=== PATIENT | female | born 1995 | race Caucasian/White ===

== ENCOUNTER → 2017-01-16 | Outpatient (CLI) | payer OTHER ==
[~2017-01-16] MED LIST: PRENTAB26 PO; SYMIN/8045 INH; VNTHFA/IN INH
[2017-01-16 10:05] LABS: BLOOD UREA NITROGEN 14 mg/dl (7-18); CALCIUM 8.7 mg/dl (8.5-10.1); CARBON DIOXIDE 29 mmol/L (21-32); CHLORIDE 106 mmol/L (98-107); CREATININE 0.69 mg/dl (0.60-1.20); GLUCOSE 83 mg/dl (70-99); SODIUM 140 mmol/L (136-145)
[2017-01-16 10:09] LABS: CHOLESTEROL 117 mg/dl (0-200); CHOLESTEROL/HDL RATIO 2.2; HDL CHOLESTEROL 53 mg/dl; LDL CHOLESTEROL CALCULATED 57 mg/dl; TRIGLYCERIDES 33 mg/dl (0-150); VERY LOW DENSITY LIPOPROT CALC 7 mg/dl
[2017-01-16 11:10] LABS: ESTIMATED AVERAGE GLUCOSE 103 mg/dl; HA1C FLAG Normal (Normal)
== END | disposition home or self-care (01) ==
LOC: C.LAB 07:20
PROVIDERS: ATTEND Physician Assistant
DX: Z13.220 Encounter for screening for lipoid disorders (principal); Z13.29 Encounter for screening for other suspected endocrine disorder; Z13.228 Encounter for screening for other metabolic disorders; Z13.0 Encounter for screening for diseases of the blood and blood-forming organs and certain disorders involving the immune mechanism

== ENCOUNTER → 2017-04-13 | Outpatient (CLI) | payer OTHER | END | disposition home or self-care (01) | LOC: C.LAB 17:39 | PROVIDERS: ATTEND Obstetrics & Gynecology | DX: N97.9 Female infertility, unspecified (principal) ==

== ENCOUNTER → 2017-04-19 | Outpatient (CLI) | payer OTHER ==
--- NOTE | 2017-04-19 10:40 | DIAGNOSTIC IMAGING REPORT ---
HYSTEROSALPINGOGRAM HISTORY: Infertility. FLUOROSCOPY TIME: 0.3 minutes. TECHNIQUE: The cervix was cannulated by the wet room supervisor-pocket cutter and water soluble contrast was instilled into the uterus under fluoroscopic guidance. Multiple spot images were obtained. FINDINGS: The uterine cavity is normal in size, shape, and position. The fallopian tubes are patent and there is free peritoneal spill bilaterally. IMPRESSION: Normal hysterosalpingogram. The above report was generated using voice recognition software. It may contain grammatical, syntax or spelling errors. Electronically signed by: Oj Herndon M.D. 04/19/2017 10:39 AM Dictated Date/Time: 04/19/2017 10:39 AM
== END | disposition home or self-care (01) ==
LOC: C.RAD 09:45
PROVIDERS: ATTEND Obstetrics & Gynecology
DX: Z31.41 Encounter for fertility testing (principal)

== ENCOUNTER → 2017-05-31 | Outpatient (CLI) | payer OTHER | END | disposition home or self-care (01) | LOC: C.LABSPEC 13:13 | PROVIDERS: ATTEND Obstetrics & Gynecology | DX: Z34.01 Encounter for supervision of normal first pregnancy, first trimester (principal) ==

== ENCOUNTER → 2017-06-09 | Outpatient (CLI) | payer OTHER ==
[2017-06-09 10:44] LABS: BASO % 0.2 %; BASO ABS # 0.01 K/uL (0-0.2); EOS % 0.8 %; EOS ABS # 0.05 K/uL (0-0.5); HEMATOCRIT 37.4 % (37-47); HEMOGLOBIN 12.8 g/dL (12.0-16.0); IG# 0.01 K/uL (0.00-0.02); LYMPH % 20.6 %; LYMPH ABS # 1.26 K/uL (1.2-3.4); MEAN CELL VOLUME 87.8 fL (80-100); MEAN CORPUSCULAR HGB CONC 34.2 g/dl (32-36); MEAN PLATELET VOLUME 10.4 fL (7.4-10.4); MONO % 4.4 %; MONO ABS # 0.27 K/uL (0.11-0.59); NEUT % 73.8 %; NEUT ABS # 4.53 K/uL (1.4-6.5); PLATELET COUNT 228 K/uL (130-400); RED CELL DISTRIBUTION WIDTH SD 41.8 fL (36.4-46.3); WHITE BLOOD COUNT 6.13 K/uL (4.8-10.8)
== END | disposition home or self-care (01) ==
LOC: C.LAB1850 09:13
PROVIDERS: ATTEND Obstetrics & Gynecology
DX: Z34.01 Encounter for supervision of normal first pregnancy, first trimester (principal)

== ENCOUNTER → 2017-08-04 | Outpatient (CLI) | payer OTHER | END | disposition home or self-care (01) | LOC: C.LAB1850 10:19 | PROVIDERS: ATTEND Obstetrics & Gynecology | DX: Z34.02 Encounter for supervision of normal first pregnancy, second trimester (principal) ==

== ENCOUNTER → 2017-12-22 | Outpatient (CLI) | payer OTHER | END | disposition home or self-care (01) | LOC: C.LABSPEC 12:44 | PROVIDERS: ATTEND Obstetrics & Gynecology | DX: Z34.03 Encounter for supervision of normal first pregnancy, third trimester (principal) ==

== ENCOUNTER 2018-01-02 08:06 | Outpatient (CLI) | payer OTHER ==
[~2018-01-02] VITALS: Ht 172.7 cm; Wt 87.5 kg
[2018-01-02 08:41] VITALS: Ht 172.7 cm; Wt 87.5 kg
[2018-01-02] MEDS ORDERED: ACETAMINOPHEN 325 MG TAB PO SCH (09:00)
[2018-01-02 09:13] LABS: BASO % 0.1 %; BASO ABS # 0.01 K/uL (0-0.2); EOS % 0.8 %; EOS ABS # 0.07 K/uL (0-0.5); HEMATOCRIT 34.9 % (37-47); HEMOGLOBIN 11.5 g/dL (12.0-16.0); IG# 0.01 K/uL (0.00-0.02); LYMPH % 13.2 %; LYMPH ABS # 1.14 K/uL (1.2-3.4); MEAN CELL VOLUME 86.8 fL (80-100); MEAN CORPUSCULAR HEMOGLOBIN 28.6 pg (25-34); MEAN PLATELET VOLUME 10.6 fL (7.4-10.4); MONO % 5.1 %; MONO ABS # 0.44 K/uL (0.11-0.59); NEUT % 80.7 %; NEUT ABS # 6.98 K/uL (1.4-6.5); PLATELET COUNT 229 K/uL (130-400); RED CELL DISTRIBUTION WIDTH CV 14.5 % (11.5-14.5); RED CELL DISTRIBUTION WIDTH SD 45.6 fL (36.4-46.3); WHITE BLOOD COUNT 8.65 K/uL (4.8-10.8)
[2018-01-02 09:36] LABS: ALBUMIN 2.6 gm/dl (3.4-5.0); ALKALINE PHOSPHATASE 158 U/L (45-117); ALT/SGPT 39 U/L (12-78); AST/SGOT 22 U/L (15-37); CREATININE 0.52 mg/dl (0.60-1.20); TOTAL PROTEIN 6.8 gm/dl (6.4-8.2)
== END 2018-01-02 10:43 | disposition home or self-care (01) ==
LOC: C.OPB 08:06 → C.LD 08:07 → C.OPB 10:43
PROVIDERS: ATTEND Obstetrics & Gynecology
DX: O13.3 Gestational [pregnancy-induced] hypertension without significant proteinuria, third trimester (principal); R10.13 Epigastric pain; Z3A.39 39 weeks gestation of pregnancy

== ENCOUNTER 2018-01-02 17:53 | Inpatient (IN) | payer OTHER ==
[~2018-01-02] VITALS: Ht 172.7 cm; Wt 87.5 kg
[2018-01-02 18:33] VITALS: Ht 172.7 cm; Wt 87.5 kg
[2018-01-02] MEDS ORDERED: LACTATED RINGER'S 1000ML 1,000 ML IV PRN (18:52)
[2018-01-02] MEDS ORDERED: LACTATED RINGER'S 1000ML 500 ML IV PRN (19:02)
[2018-01-02] MEDS ORDERED: OXYTOCIN 30 UNITS/500ML NSS IV PRN (19:15)
[2018-01-02] MEDS: BUDESONIDE/FORMOTEROL FUMARATE 160/4.5 60 PUFFS/INHALER INH SCH (19:45)
[2018-01-02 19:49] LABS: HEMATOCRIT 35.3 % (37-47); HEMOGLOBIN 11.6 g/dL (12.0-16.0); MEAN CELL VOLUME 86.7 fL (80-100); MEAN CORPUSCULAR HEMOGLOBIN 28.5 pg (25-34); MEAN CORPUSCULAR HGB CONC 32.9 g/dl (32-36); MEAN PLATELET VOLUME 10.7 fL (7.4-10.4); PLATELET COUNT 236 K/uL (130-400); RED CELL DISTRIBUTION WIDTH CV 14.5 % (11.5-14.5); RED CELL DISTRIBUTION WIDTH SD 45.1 fL (36.4-46.3); WHITE BLOOD COUNT 9.45 K/uL (4.8-10.8)
[2018-01-02] MEDS ORDERED: CALCIUM CARBONATE 500 MG CHEWABLE PO PRN (20:15)
[2018-01-02] MEDS ORDERED: NURSING VERBAL MED ORDER ONE (20:15)
[2018-01-02] MEDS: ACETAMINOPHEN 325 MG TAB PO PRN (20:22)
[2018-01-03] MEDS: ACETAMINOPHEN 325 MG TAB PO PRN (03:39)
[2018-01-03] MEDS: LACTATED RINGER'S 1000ML 1,000 ML IV SCH ×3 (04:57→14:51)
[2018-01-03] MEDS: ALBUTEROL HFA 8 GM INHALER INH PRN (06:17)
[2018-01-03] MEDS: BUDESONIDE/FORMOTEROL FUMARATE 160/4.5 60 PUFFS/INHALER INH SCH ×2 (08:18→22:07)
[2018-01-03] MEDS ORDERED: EpHEDrine SULFATE INJ 50 MG/ML AMP ONE (10:19)
[2018-01-03] MEDS ORDERED: BUPIVACAINE 0.25% 30 ML VIAL ONE ×2 (10:19→17:01)
[2018-01-03] MEDS ORDERED: FENTANYL CITRATE INJ 50 MCG/1 ML 2 ML VIAL ONE ×2 (10:20→17:01)
[2018-01-03] MEDS ORDERED: FENTANYL 2MCG/ML ROPIV 1.25MG/ML 100ML BAG ONE (10:21)
[2018-01-03] MEDS ORDERED: NALOXONE HCL INJ 1 MG in SODIUM CHLORIDE 0.9% 1000ML 1,000 ML IV PRN (11:26)
[2018-01-03] MEDS ORDERED: LACTATED RINGER'S 1000ML 500 ML IV PRN (11:26)
[2018-01-03] MEDS ORDERED: NALBUPHINE HCL INJ 10 MG/ML 1ML AMP IV PRN (11:30)
[2018-01-03] MEDS ORDERED: NALOXONE HCL INJ 0.4 MG/1 ML VIAL/CARP IV PRN (11:30)
[2018-01-03] MEDS ORDERED: DiphenhydrAMINE HCL 50 MG/ML VIAL IV PRN (11:30)
[2018-01-03] MEDS ORDERED: EpHEDrine SULFATE INJ 50 MG/ML AMP IV PRN (11:30)
[2018-01-03] MEDS: FENTANYL 2MCG/ML ROPIV 1.25MG/ML 100ML BAG EPI PRN ×3 (16:44→18:47)
[2018-01-03] MEDS ORDERED: ACETAMINOPHEN 325 MG TAB PO PRN (20:00)
[2018-01-03] MEDS ORDERED: SUPERCREAM 0.870 % 15GM JAR EXT PRN (20:00)
[2018-01-03] MEDS ORDERED: OXYTOCIN 30 UNITS/500ML NSS IV PRN (20:00)
[2018-01-03] MEDS ORDERED: OXYCODONE/ACETAMINOPHEN 5-325 TAB PO PRN (20:00)
[2018-01-03] MEDS ORDERED: HYDROCORTISONE ACETATE 25 MG SUPP PR PRN (20:00)
[2018-01-03] MEDS ORDERED: DIPHTHERIA/TETANUS/PERTUSSIS 0.5 ML SYR/VIAL IM. ONE (20:00)
[2018-01-03] MEDS ORDERED: LANOLIN OINT EXT PRN (20:00)
[2018-01-03] MEDS ORDERED: BENZOCAINE 20% AER SPR 82.5 GM CAN EXT PRN (20:00)
--- NOTE | 2018-01-03 20:02 | Vaginal Delivery Summary ---
Vaginal Delivery Summary Yue pushed to deliver her viable female in the ANNE position over an intact perineum. There was no nuchal cord, and there was no difficulty with delivery of the shoulders or body. The was placed on the maternal abdomen while cord was doubly clamped and cut. Gentle traction was applied to the cord which promptly avulsed. Fundal massage was performed and within a few minutes the placental mass delivered easily and spontaneously. On exam the placenta was intact with a 3VC. There were no lacerations of cervix, vagina or perineum. The fundus was firm and lochia was minimal immediately after delivery , and mother and infant are doing well at this time.
[2018-01-03] MEDS: IBUPROFEN 600 MG TAB PO PRN (20:14)
[2018-01-03] MEDS ORDERED: ALBUTEROL HFA 8 GM INHALER INH PRN (20:15)
--- NOTE | 2018-01-03 21:25 | Anesthesia Procedure Note ---
Anesthesia Epidural Removal Nt Date & Time Jan 03, 2018 at 21:25 Vital Signs Pain Intensity: 3.0 Notes Mental Status: alert / awake / arousable, participated in evaluation Nausea / Vomiting: adequately controlled Pain: adequately controlled Airway Patency, RR, SpO2: stable & adequate BP & HR: stable & adequate Hydration State: stable & adequate Neuraxial Anesthesia: was administered Anesthetic Complications: no major complications apparent, pt satisfied with anesthetic care Epidural: removed without complications, with tip intact
[2018-01-03 22:00] VITALS: BP 133/78; PULSE 97; TEMP 36.9; O2SAT 99
[2018-01-03] MEDS: DOCUSATE SODIUM 100 MG CAP PO SCH (22:14)
[2018-01-03 23:10] VITALS: BP 124/84; PULSE 94; TEMP 36.6; O2SAT 97
[2018-01-04 03:30] VITALS: BP 114/73; PULSE 87; TEMP 36.4; O2SAT 98
[2018-01-04] MEDS: IBUPROFEN 600 MG TAB PO PRN ×3 (06:22→19:39)
--- NOTE | 2018-01-04 06:38 | Progress Note ---
Subjective Jan 04, 2018. Subjective conversation w/ patient Ambulation: ambulating normally Voiding: no voiding problems Passing Gas: Yes Diet Tolerance: Regular Diet Lochia: Moderate Pain: Improving Problem List Medical Problems: (1) Asthma (2) Gestational hypertension (3) Headache in (4) with 30 completed weeks gestation (5) Uterine cramping Review of Systems Constitutional: No fever Respiratory: No shortness of breath Cardiac: No chest pain, No palpitations Abdomen: No nausea, No vomiting Objective Vital Signs Date Time Temp Pulse Resp B/P (MAP) Pulse Ox O2 Delivery O2 Flow Rate FiO2 01/04/18 03:30 36.4 87 16 114/73 (87) 98 Room Air 01/03/18 23:10 36.6 94 16 124/84 (97) 97 Room Air 01/03/18 22:00 Room Air 01/03/18 22:00 36.9 97 16 133/78 (96) 99 Room Air Physical Exam General Appearance: WELL-APPEARING, NO APPARENT DISTRESS Respiratory/Chest: normal breath sounds, no respiratory distress Cardiovascular: regular rate, rhythm Abdomen: soft Fundus: Firm (at umbilicus) Laboratory Results Last 24 Hours Test 01/04/18 06:27 Assessment and Plan Problem List Medical Problems: (1) Dehydration Status: Acute (2) Right lower quadrant abdominal pain Status: Acute (3) Vomiting Status: Acute Post- Day#: 1 Continue Routine Care: Analgesia PRN Escalate diet as needed Ambulation encouraged. Resident Physician Supervision Note: I interviewed and examined the patient. Discussed with Dr. Weston and agree with findings and plan as documented in the note. Any exceptions or clarifications are listed here: [None] Documented By: Hayley Yoon
[2018-01-04 06:44] LABS: HEMATOCRIT 32.1 % (37-47); HEMOGLOBIN 10.5 g/dL (12.0-16.0)
[2018-01-04] MEDS: DOCUSATE SODIUM 100 MG CAP PO SCH ×2 (07:43→19:40)
[2018-01-04] MEDS: BUDESONIDE/FORMOTEROL FUMARATE 160/4.5 60 PUFFS/INHALER INH SCH ×2 (07:43→19:40)
[2018-01-04 07:47] VITALS: BP 129/85; PULSE 75; TEMP 36.7; O2SAT 99
[2018-01-04] MEDS ORDERED: BUDESONIDE/FORMOTEROL FUMARATE 80/4.5 60 PUFFS/INHALER INH SCH (08:00)
[2018-01-04] MEDS: PRENATAL VITAMIN TAB PO SCH (08:11)
[2018-01-04 11:25] VITALS: BP 116/74; PULSE 80; TEMP 36.6
[2018-01-04 16:00] VITALS: BP 127/84; PULSE 82; TEMP 36.8; O2SAT 99
[2018-01-04] MEDS: ALBUTEROL HFA 8 GM INHALER INH PRN (19:40)
[2018-01-05 00:15] VITALS: BP 119/76; PULSE 70; TEMP 34.9
[2018-01-05] MEDS: IBUPROFEN 600 MG TAB PO PRN ×2 (00:17→06:15)
--- NOTE | 2018-01-05 00:30 | Discharge Instructions ---
Discharge Instructions Date of Service Jan 05, 2018. Admission Reason for Admission: Blood Pressure Check Discharge Discharge Diagnosis / Problem: after delivery Discharge Goals Goal(s): Routine recovery after delivery Medications Continue Dispensed Medications: supercream, dermaplast, tucks, inhaler Activity Recommendations Activity Limitations: as noted below . Instructions / Follow-Up Instructions / Follow-Up ACTIVITY RECOMMENDATIONS: * Gradual return to full activity over the next 2-3 weeks. * No lifting - nothing heavier than baby over the next 2-3 weeks. * Do not engage in vigorous exercise, sexual activity or sports until cleared by your physician. * Do not drive or operate any motorized equipment until cleared by your physician. * You may shower/bathe daily. MEDICATIONS: For discomfort or pain, you may use Acetaminophen (Tylenol), Ibuprofen (Advil), or Naproxen (Aleve) following the package directions. For constipation you may use Colace following the package directions. BREAST CARE: If you are not breast feeding: * Wear a supportive bra 24 hours a day for one to two weeks. * Avoid stimulating your breasts and nipples as much as possible during the first few weeks after delivery. * When taking a shower, have the warm water hit your back, not breasts. * When your breasts feel full, apply ice packs. Usually three to four times a day helps ease the discomfort. * Take a mild pain medication (Tylenol / Motrin) when you are uncomfortable. If breast feeding: * Use breast milk to lubricate nipples. Lansinoh cream may be used for sore nipples. You do not need to remove cream prior to breast feeding. If using a different brand of cream, check the label for directions regarding removal of cream prior to nursing. * Wear a supportive bra. * If having problems with breasts or breast feeding, call a independent consultant or your health care provider. EPISIOTOMY CARE: After delivery, if you have an episiotomy (stitches), the following steps will ease discomfort and aid healing. * For the first 24 hours after delivery, place ice packs next to your episiotomy to help reduce swelling. * After the first 24 hour-period, sitz baths, either portable or in the tub, are suggested. A shower with a shower arm sprayed over the episiotomy may be comforting. * Lilliana care should be done after each voiding and bowel movement. Squirt warm water from a plastic bottle over the perineum (region of the body between the anus and urinary opening) and pat dry. * Use Dermoplast to ease discomfort. Shake container. Oil Trough directly over the episiotomy. Place a Tucks on a clean sanitary pad next to your episiotomy. SPECIAL CARE INSTRUCTIONS: When you are discharged from the hospital, it is important for you to follow the instructions listed below: * During the first week at home, you should be able to care for yourself and your baby. In addition, the usual light household activities are encouraged. * Limit your activities to the way you feel. Do not try to clean the house or move furniture. Be sensible. * If you actively engage in sports and have done so up until the time of your delivery, you may resume these activities as soon as you feel able. This may take up to one month or even longer. Use good judgment. * Continue to take your vitamins for at least six weeks after the of your baby. * Your diet need not be limited unless you were on a special diet before your delivery. Breast-feeding mothers need around 2500 calories per day and at least 64-80 ounces of fluid per day (8 to 10 glasses). * You should eat foods from the four major food groups. Crash diets or fad diets are to be avoided. Eating lean meats, fresh fruits and vegetables, low-fat dairy products, high fiber foods and a regular exercise program, will help you get back to your pre- weight without putting your health at risk. * Constipation is sometimes a problem after delivery. Take a mild laxative as needed. If breast feeding, Milk of Magnesia is acceptable to use. You may use a suppository or Fleets enema if no episiotomy. * A daily shower or tub bath is suggested. Be sure to thoroughly and gently dry the perineum. * A bloody vaginal discharge will usually continue until around four weeks post . A small amount of bleeding may continue for as long as six weeks. Vaginal discharge changes from the bright red bleeding after delivery to pink then brownish and finally yellowish-pink before becoming white and disappearing. * Bleeding may increase with activity. Your first period may come in 4-8 weeks. If you are breast feeding, your period may be delayed even longer. * [place] (sex) can begin whenever both you and your partner feel comfortable and do not have any form of genital infection. It is recommended that you wait at least six weeks for internal and external healing to occur. If you have questions, please talk to your health care practitioner. A condom should be used to prevent infection and . * Foreplay, gentle intercourse and lubrication is very important the first several times to prevent pain. A water-based lubricant such as K-Y jelly or Astroglide may be used. * If you have RH negative blood and your baby is RH positive, you will receive RHOGAM by injection prior to discharge. The nurse will give you a card to keep with you that has the date and place that you received RHOGAM after delivery. * During your care, you had a Rubella screen done to check for the presence of rubella antibodies in your blood. If your test was negative, you will receive a Rubella vaccine prior to discharge. This vaccine may cause a fever, soreness at the injection site and flu-like symptoms. If these symptoms persist, notify your health care practitioner. is not advised for one month after a Rubella vaccine. * Verbalizes understanding of car seat law as reviewed with patient nursing. * Car Seat hand-out given and reviewed with patient by nursing. * Shaken baby information reviewed with patient by nursing. Call you doctor if: * Heavy bleeding (saturating several pads an hour) or passing clots the size of your fist. * A fever >101 degrees F (38.3 degrees C) on two occasions four hours apart and /or chills. * Unusual pain in the pelvic or vaginal areas. * "Baby Blues" lasting longer than two weeks. If you have any questions or concerns, call your health care practitioner at . FOLLOW UP VISIT: * Please call the office at to schedule a 6 week examination. It is important you keep this appointment. It is important for you to make arrangements for either yearly or twice yearly check-ups thereafter. Current Hospital Diet Patient's current hospital diet: Regular OB Diet Discharge Diet Recommended Diet: Regular Diet Pending Studies Studies pending at discharge: no Medical Emergencies . Who to Call and When: Medical Emergencies: If at any time you feel your situation is an emergency, please call 911 immediately. . Non-Emergent Contact Non-Emergency issues call your: Gastroenterology Nurse . . "Provider Documentation" section prepared by Shreya Pennington. .
--- NOTE | 2018-01-05 07:14 | Progress Note ---
Subjective Jan 05, 2018. Subjective conversation w/ patient Ambulation: ambulating normally Voiding: no voiding problems Passing Gas: Yes Diet Tolerance: Regular Diet Lochia: Moderate Feeding Type: Breast Feeding Pain: Improving Problem List Review of Systems Constitutional: No fever, No chills Respiratory: No shortness of breath Cardiac: No chest pain, No palpitations Abdomen: No nausea, No vomiting Female : No dysuria Objective Vital Signs Date Time Temp Pulse Resp B/P (MAP) Pulse Ox O2 Delivery O2 Flow Rate FiO2 01/05/18 00:15 Room Air 01/05/18 00:15 34.9 70 18 119/76 (90) 01/04/18 16:00 36.8 82 18 127/84 (98) 99 Room Air 01/04/18 16:00 99 Room Air 01/04/18 11:25 36.6 80 16 116/74 (88) Room Air 01/04/18 07:47 Room Air 01/04/18 07:47 36.7 75 18 129/85 (100) 99 Room Air Physical Exam General Appearance: WELL-APPEARING, NO APPARENT DISTRESS Respiratory/Chest: normal breath sounds, no respiratory distress Cardiovascular: regular rate, rhythm Abdomen: soft Fundus: Firm (1 below) Extremities: no calf tenderness Medications Current Inpatient Medications Medications (Trade) Dose Ordered Sig/Roberto Carlos Route Start Time Stop Time Status Last Admin Dose Admin Lactated Ringer's 1,000 ml @ 999 mls/hr Q1H1M PRN IV 01/02/18 18:52 02/01/18 18:51 Budesonide/ Formoterol Fumarate (Symbicort 160/ 4.5 Inh) 2 puffs BID INH 01/02/18 20:00 02/01/18 19:59 01/04/18 19:40 2 PUFFS Albuterol (Ventolin Hfa Inhaler) 2 puffs Q4 PRN INH 01/02/18 19:15 02/01/18 19:14 01/04/18 19:40 2 PUFFS Oxytocin (Pitocin IV) 30 units UD PRN IV 01/02/18 19:15 02/01/18 19:14 01/03/18 05:01 30 UNITS Lactated Ringer's 500 ml @ 999 mls/hr Q31M PRN IV 01/02/18 19:02 02/01/18 19:01 Acetaminophen (Tylenol Tab) 650 mg Q4H PRN PO 01/02/18 20:15 02/01/18 20:14 01/03/18 03:39 650 MG Calcium Carbonate (Tums Chew Tab) 500 mg Q4H PRN PO 01/02/18 20:15 02/01/18 20:14 Oxytocin (Pitocin IV) 30 units UD PRN IV 01/03/18 20:00 02/02/18 19:59 Benzocaine (Dermoplast Aero Spr) 1 appln PRN PRN EXT 01/03/18 20:00 02/02/18 19:59 01/03/18 22:14 82.5 APPLN Cocaine HCl (Supercream 0.870% Cr) BID PRN EXT 01/03/18 20:00 01/17/18 19:59 Hydrocortisone Acetate (Anusol Hc Supp) 25 mg BID PRN MT 01/03/18 20:00 02/02/18 19:59 Lanolin (Lanolin Oint) PRN PRN EXT 01/03/18 20:00 02/02/18 19:59 Prenat Multivit/ Drop Hammer Operator Helper/Iron/Folic Ac ( Vitamin Tab) 1 tab DAILY PO 01/04/18 08:00 02/03/18 07:59 01/04/18 08:11 1 TAB Ibuprofen (Motrin Tab) 600 mg Q4H PRN PO 01/03/18 20:00 02/02/18 19:59 01/05/18 06:15 600 MG Acetaminophen (Tylenol Tab) 650 mg Q6H PRN PO 01/03/18 20:00 02/02/18 19:59 Oxycodone/ Acetaminophen (Percocet 5-325mg Tab) 1 tab Q4H PRN PO 01/03/18 20:00 01/17/18 19:59 Docusate Sodium (coLACE CAP) 100 mg BID PO 01/03/18 20:00 02/02/18 19:59 01/04/18 19:40 100 MG Assessment and Plan Post- Day#: 2 Continue Routine Care: Analgesia PRN Escalate diet as needed Ambulation encouraged Discharge today Dr Weston PGY 1 Resident Physician Supervision Note: I was present with Dr. Weston during the history and exam. I discussed the case with the resident and agree with the findings and plan as documented in the note. Any exceptions or clarifications are listed here: Doing well. ready for discharge, instructions reviewed, plan 6wk pp checkup. Documented By: Shreya Pennington Resident Tracking Resident Involvement: Resident Care Provided Care Provided: OB Delivery
[2018-01-05 08:00] VITALS: BP 114/71; PULSE 84; TEMP 36.8; O2SAT 98
[2018-01-05] MEDS: DOCUSATE SODIUM 100 MG CAP PO SCH (08:46)
[2018-01-05] MEDS: PRENATAL VITAMIN TAB PO SCH (08:46)
[2018-01-05] MEDS: BUDESONIDE/FORMOTEROL FUMARATE 160/4.5 60 PUFFS/INHALER INH SCH (08:47)
[2018-01-05 10:26] VITALS: BP_DIAS 71; PULSE 84; TEMP 36.8
== END 2018-01-05 11:43 | disposition home or self-care (01) | DRG 775 ==
LOC: C.LD 17:53 → C.OPB 17:53 → C.LD 18:05 → C.OPB 18:55 → C.LD 18:55 → C.OBG 01-03 22:03
PROVIDERS: ADMIT Obstetrics & Gynecology; ATTEND Obstetrics & Gynecology
PROC: 10E0XZZ Delivery of Products of Conception, External Approach (ICD-10-PCS; principal; 2018-01-02)
DX: O80 Encounter for full-term uncomplicated delivery (principal); Z3A.38 38 weeks gestation of pregnancy; Z37.0 Single live birth